=== PATIENT | female | born 1990 | race Caucasian/White ===

== ENCOUNTER 2024-08-15 10:38 | Outpatient (CLI) | payer OTHER | END 2024-08-15 10:44 | disposition home or self-care (01) | LOC: MAMO-SONO 10:38 | PROVIDERS: ATTEND Obstetrics & Gynecology | DX: R10.2 Pelvic and perineal pain (principal); N60.11 Diffuse cystic mastopathy of right breast; N60.12 Diffuse cystic mastopathy of left breast ==

== ENCOUNTER 2025-06-18 13:46 | Emergency (ER) | payer OTHER ==
[~2025-06-18] VITALS: Ht 170.2 cm; Wt 101.6 kg
[2025-06-18] MEDS ORDERED: 0.9 % SODIUM CHLORIDE 1,000 ML IV STA (16:41)
[2025-06-18 17:05] LABS: BASO % 0.3 % (0.1-1.2); EOS # 0.18 (0.04-0.54); EOS % 2.0 % (0.7-7.0); LYMPH # 1.94 (1.18-3.74); LYMPH % 22.0 % (19.3-53.1); MEAN PLATELET VOLUME 10.90 fl (9.4-12.4); MONO # 0.84 (0.24-0.82); MONO % 9.5 % (4.7-12.5); NEUT # 5.80 (1.56-6.13); NEUT % 66.0 % (34.0-71.1); RED CELL DISTRIBUTION WIDTH 14.1 % (11.6-14.4)
[2025-06-18 17:40] LABS: INR 1.0
[2025-06-18 18:11] LABS: ALT/SGPT 34.0 U/L (12-78); AST/SGOT 16.0 U/L (15-37); BILIRUBIN TOTAL 0.2 mg/dL (0.3-1.2); BUN CREA RATIO 17.0 (7.0-25.0); CREATININE SERUM 0.82 mg/dL (0.55-1.02); GFR 78.88; GLOBULINA 3.7 G/DL (2.4-3.5); GLUCOSE FASTING 86.0 mg/dL (65-100); OSMOLALITY SERUM 277.0 MOSM/KG (275-295)
[2025-06-18 18:12] LABS: HCG QUANTITATIVE 7716.0 mUI/mL (1-3)
== END 2025-06-18 19:10 | disposition home or self-care (01) ==
LOC: ER 13:46
DX: O20.9 Hemorrhage in early pregnancy, unspecified (principal); O26.891 Other specified pregnancy related conditions, first trimester; Z3A.01 Less than 8 weeks gestation of pregnancy; R10.2 Pelvic and perineal pain; Z88.8 Allergy status to other drugs, medicaments and biological substances

== ENCOUNTER 2025-06-27 07:50 | Emergency (ER) | payer OTHER ==
[~2025-06-27] VITALS: Ht 170.2 cm; Wt 101.6 kg
[2025-06-27] MEDS ORDERED: ACETAMINOPHEN 500 MG GEL..CAP PO STA (08:25)
[2025-06-27] MEDS ORDERED: GUAIFENESIN/DEXTROMETHORPHAN 100MG/10ML BLIST.PACK PO STA (08:26)
[2025-06-27] MEDS ORDERED: CETIRIZINE HCL 5 MG/5 ML ML PO STA (08:27)
[2025-06-27 09:03] LABS: BASO % 0.6 % (0.1-1.2); EOS # 0.14 (0.04-0.54); EOS % 2.0 % (0.7-7.0); LYMPH # 0.56 (1.18-3.74); LYMPH % 8.2 % (19.3-53.1); MEAN PLATELET VOLUME 11.00 fl (9.4-12.4); MONO # 0.93 (0.24-0.82); NEUT # 5.13 (1.56-6.13); NEUT % 75.2 % (34.0-71.1); RED CELL DISTRIBUTION WIDTH 13.9 % (11.6-14.4)
[2025-06-27 09:12] LABS: MONO % 13.6 % (4.7-12.5)
[2025-06-27 10:14] LABS: COVID-19 AG NEGATIVE (NEGATIVE)
[2025-06-27] MEDS ORDERED: AMOX1TAB5 PO (10:26)
[2025-06-27] MEDS ORDERED: CETIRIZINE HCL5 MG PO (10:26)
[2025-06-27] MEDS ORDERED: ACETAMINOPHEN500 M1 PO (10:31)
[2025-06-27] MEDS ORDERED: MUCINEX D ER 61 EACH PO (10:31)
== END 2025-06-27 10:55 | disposition home or self-care (01) ==
LOC: ER 07:53
PROVIDERS: General Practice
DX: Z34.90 Encounter for supervision of normal pregnancy, unspecified, unspecified trimester (principal); Z3A.01 Less than 8 weeks gestation of pregnancy; B34.9 Viral infection, unspecified; J06.9 Acute upper respiratory infection, unspecified; J00 Acute nasopharyngitis [common cold]; R51.9 Headache, unspecified; Z20.822 Contact with and (suspected) exposure to COVID-19; Z88.8 Allergy status to other drugs, medicaments and biological substances

== ENCOUNTER 2025-10-29 17:45 | Outpatient (CLI) | payer OTHER ==
[~2025-10-29 17:45] MED LIST: ACETAMINOPHEN500 M1 PO; AMOX1TAB5 PO; CETIRIZINE HCL5 MG PO; MUCINEX D ER 61 EACH PO
== END 2025-10-29 18:59 | disposition home or self-care (01) ==
LOC: NST 17:45
PROVIDERS: ATTEND Obstetrics & Gynecology
DX: Z34.82 Encounter for supervision of other normal pregnancy, second trimester (principal)